=== PATIENT | male | born 1975 | race African-American/Black ===

== ENCOUNTER 2017-10-15 09:20 | Emergency (ER) | payer OTHER ==
[2017-10-15 10:12] VITALS: BP 111/69
--- NOTE | 2017-10-15 10:16 | UC ---
Laceration HPI - HPI Summary HPI Summary: 42 yo male presents with laceration to RIGHT palm sustained last night. He tells me that he was playing with his son and slid his right hand on a metal chain link fence when his skin got caught and tore. He cleansed the area and bandaged it. This morning took the bandage off and noticed some exposed fat so he wanted to get it checked out. Unsure date of last tetanus. - History Of Current Complaint Chief Complaint: UCLaceration Stated Complaint: RT HAND LAC Time Seen by Provider: 10/15/17 10:15 Hx Obtained From: Patient Laceration Location: Hand Mechanism Of Injury: Sharp Trauma Onset/Duration: Sudden Onset Severity: Mild Pain Intensity: 2 Pain Scale Used: 0-10 Numeric - Allergies/Home Medications Allergies/Adverse Reactions: Allergies Allergy/AdvReac Type Severity Reaction Status Date / Time No Known Allergies Allergy Verified 10/15/17 10:06 Home Medications: Home Medications Lansoprazole SOLUTAB* [Prevacid SOLUTAB*] 1 tab PO DAILY 10/15/17 [History Confirmed 10/15/17] Mycophenolate Mofetil TAB(*) [Cellcept TAB(*)] 4 tab PO BID 10/15/17 [History Confirmed 10/15/17] Sulfamethox/Trimethoprim DS* [Bactrim DS 800/160 TAB*] 1 tab PO DAILY 10/15/17 [ History Confirmed 10/15/17] Tacrolimus CAP(*) [Prograf CAP(*)] 2 tab PO DAILY 10/15/17 [History Confirmed ] PMH/Surg Hx/FS Hx/Imm Hx Endocrine History: Diabetes GI/ History: Gastroesophageal Reflux - Surgical History Surgical History: None Surgery Procedure, Year, and Place: kidney transplant. pancreas transplant - Family History Known Family History: Positive: None - Social History Lives: With Family Alcohol Use: Occasionally Substance Use Type: Marijuana Substance Use Comment - Amount & Last Used: occasional Smoking Status (MU): Never Smoked Tobacco - Immunization History Most Recent Influenza Vaccination: [id number] Most Recent Tetanus Shot: unknown Review of Systems Constitutional: Negative Skin: Other - Right hand laceration Respiratory: Negative Cardiovascular: Negative Neurovascular: Negative Musculoskeletal: Negative Neurological: Negative Psychological: Negative All Other Systems Reviewed And Are Negative: Yes Physical Exam - Summary Physical Exam Summary: GENERAL: NAD. WDWN. No pain distress. SKIN: RIGHT HAND: at the thenar eminence there is a 1.0cm flap-like laceration with exposed subcutaneous fat. Good approximation at rest. No FB or active bleeding. NECK: Supple. Nontender. No lymphadenopathy. CHEST: No accessory muscle use. Breathing comfortably and in no distress. CV: Pulses intact MSK: Right hand and all fingers FROM NEURO: Alert. CN II-XII grossly intact. PSYCH: Age appropriate behavior. Triage Information Reviewed: Yes Vital Signs: Initial Vital Signs Temp 97.7 F 10/15/17 10:02 Pulse 90 10/15/17 10:02 Resp 13 10/15/17 10:02 BP 111/69 10/15/17 10:02 Pulse Ox 100 10/15/17 10:02 Vital Signs Reviewed: Yes Laceration Repair - Laceration Repair 1 Description: Stellate Laceration Size After Repair: Length (cm) - 1.0 Modified For Repair: No Irrigation With Pressure Irrigation Device: Yes Closure Material: Skin Adhesive Laceration Course/Dx - Course/Dx Course Of Treatment: The area was irrigated with 500cc of NS. Dermabond was applied to the wound and then dressed with telfa. Advised to change dressing daily until well healed. tdap updated today - Differential Dx - Laceration/Wound Provider Diagnoses: Laceration right hand Discharge - Sign-Out/Discharge Documenting (check all that apply): Patient Departure - Discharge Plan Condition: Stable Disposition: HOME Patient Education Materials: Laceration (DC), Skin Adhesive Care (ED) Referrals: Alban Maldonado MD [Primary Care Provider] - Additional Instructions: If you develop a fever, shortness of breath, chest pain, new or worsening symptoms - please call your PCP or go to the ED. 1) Keep the area covered until well healed - Billing Disposition and Condition Condition: STABLE Disposition: Home
[2017-10-15] MEDS ORDERED: Tetan/Diph/Pertus SYR(Tdap)* 0.5 ML SYR(BOOSTRIX) use SYR IM ONE (10:27)
== END 2017-10-15 10:45 | disposition home or self-care (01) ==
LOC: UCCORT 09:20
DX: S61.411A Laceration without foreign body of right hand, initial encounter (principal); W26.8XXA Contact with other sharp object(s), not elsewhere classified, initial encounter; Y93.89 Activity, other specified; Y92.9 Unspecified place or not applicable; Z23 Encounter for immunization; K21.9 Gastro-esophageal reflux disease without esophagitis; Z94.0 Kidney transplant status; Z94.83 Pancreas transplant status
CPT/HCPCS: 12001; 90715; 96372; 99211; 99212; G0463

== ENCOUNTER 2019-03-03 11:21 | Emergency (ER) | payer OTHER ==
[2019-03-03 11:43] VITALS: BP 134/80
--- NOTE | 2019-03-03 11:49 | UC ---
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 Patient states he thought symptoms would improve but they have worsened. Notes nausea and chills this morning that prompted him to leave work. Denies vomiting and abdominal pain. Denies cough, SOB, wheezing, and chest pain. Denies fevers. Patient denies any illnesses or complications since transplant. - History of Current Complaint Chief Complaint: UCRespiratory Stated Complaint: ST/FATIGUE/HOT/COLD CHILLS Hx Obtained From: Patient Onset/Duration: Gradual Onset, Lasting Days Severity: Mild Pain Intensity: 4 Pain Scale Used: 0-10 Numeric - Allergies/Home Medications Allergies/Adverse Reactions: Allergies Allergy/AdvReac Type Severity Reaction Status Date / Time No Known Allergies Allergy Verified 03/03/19 11:35 Home Medications: Home Medications Another Bp Med 1 tab PO DAILY 03/03/19 [History] predniSONE TAB* [Deltasone TAB*] 5 mg PO DAILY 03/03/19 [History Confirmed 03/03] PMH/Surg Hx/FS Hx/Imm Hx Endocrine History: Diabetes - type 1 - Surgical History Surgical History: Yes Surgery Procedure, Year, and Place: kidney transplant. pancreas transplant - Family History Known Family History: Positive: None - Social History Occupation: Employed Full-time Alcohol Use: Occasionally Substance Use Type: Marijuana Substance Use Comment - Amount & Last Used: daily Smoking Status (MU): Never Smoked Tobacco - Immunization History Most Recent Influenza Vaccination: [id number] Most Recent Tetanus Shot: unknown Review of Systems All Other Systems Reviewed And Are Negative: Yes Constitutional: Positive: Chills, Fatigue. Negative: Fever ENT: Positive: Sore Throat, Sinus Congestion Respiratory: Positive: Negative Cardiovascular: Positive: Negative Gastrointestinal: Positive: Negative Musculoskeletal: Positive: Negative Neurological: Positive: Negative Physical Exam Triage Information Reviewed: Yes Appearance: No Pain Distress, Well-Nourished, Other: - covered up lying on table , appears fatigued Vital Signs: Initial Vital Signs Temp 99.2 F 03/03/19 11:38 Pulse 101 03/03/19 11:38 Resp 15 03/03/19 11:38 BP 134/80 03/03/19 11:38 Pulse Ox 100 03/03/19 11:38 Lab Results 03/03/19 03/03/19 Range/Units 12:01 12:26 Influenza A (Rapid) Negative (Negative) Influenza B (Rapid) Negative (Negative) Group A Strep Rapid Negative (Negative) Vital Signs Reviewed: Yes Eyes: Positive: Conjunctiva Clear ENT: Positive: Hearing grossly normal, Pharyngeal erythema, TMs normal, Uvula midline. Negative: Nasal congestion, Nasal drainage, Tonsillar swelling, Tonsillar exudate Neck exam: Normal Neck: Positive: Supple, Nontender, No Lymphadenopathy Respiratory Exam: Normal Respiratory: Positive: Lungs clear, Normal breath sounds, No respiratory distress. Negative: Crackles, Rhonchi, Stridor, Wheezing Cardiovascular Exam: Other - regular rhythm Cardiovascular: Positive: Tachycardia - mild tachycardia Abdominal Exam: Normal Abdomen Description: Positive: Nontender, Soft Neurological: Positive: Alert, Fatigued Psychological: Positive: Age Appropriate Behavior Skin Exam: Normal Throat Pain/Nasal Course/Dx - Course Course Of Treatment: Negative rapid strep and flu. PE findings normal. Patient alert and oriented but appears fatigued. Patient noted nights sweats and extreme fatigue. Based on history and daily immunosuppressive medications, further lab work is warranted. I recommended patient go to ED for further evaluation. Patient voiced understanding and agreed to have a friend pick him up and take him to ED upon leaving urgent care. Patient declined transfer via ambulance. - Differential Dx/Diagnosis Provider Diagnosis: Fatigue, Sore throat, Night sweats, Decrease in appetite Discharge ED - Sign-Out/Discharge Documenting (check all that apply): Patient Departure All imaging exams completed and their final reports reviewed: No Studies - Discharge Plan Condition: Stable Disposition: HOME-RECOMMEND TO ED Referrals: No Primary Care Phys,NOPCP [Primary Care Provider] - Additional Instructions: The provider that evaluated you today thinks that you need additional testing that can be completed the emergency department. It is recommended that you go directly to emergency department for further evaluation. This evaluation included blood work or imaging. This testing will be directed and decided by the provider that evaluates you at the emergency department. If pain becomes worse, you feel lightheaded, you have uncontrolled vomiting, or you have any other concerns while you are being driven to emergency department as recommended to pullover and contact 911. - Billing Disposition and Condition Condition: STABLE Disposition: Home-Recommend to ED
[2019-03-03 12:38] LABS: Influenza A Molecular NEGATIVE (Negative); Influenza B Molecular NEGATIVE (Negative)
== END 2019-03-03 13:29 | disposition home health service (06) ==
LOC: UCCORT 11:21
DX: J02.9 Acute pharyngitis, unspecified (principal); R53.83 Other fatigue; R61 Generalized hyperhidrosis; R63.8 Other symptoms and signs concerning food and fluid intake; R09.81 Nasal congestion; E10.9 Type 1 diabetes mellitus without complications; Z94.0 Kidney transplant status; Z94.83 Pancreas transplant status
CPT/HCPCS: 87651; 99212; G0463

== ENCOUNTER 2019-06-05 08:41 | Emergency (ER) | payer SELFPAY ==
--- NOTE | 2019-06-05 08:59 | UC ---
Laceration HPI - HPI Summary HPI Summary: 44-year-old male who sustained a laceration between his fourth and fifth finger of his right hand last evening when he was washing a Igor jar which had a sharp edge. Last tetanus was 2018. - History Of Current Complaint Stated Complaint: LEFT HAND LACERATION Time Seen by Provider: 06/05/19 08:49 Hx Obtained From: Patient Laceration Location: Hand Mechanism Of Injury: Sharp Trauma Onset/Duration: Sudden Onset Severity: Mild Aggravating Factors: Movement Related History: Dominant Hand Right - Allergies/Home Medications Allergies/Adverse Reactions: Allergies Allergy/AdvReac Type Severity Reaction Status Date / Time No Known Allergies Allergy Verified 06/05/19 08:50 Home Medications: Home Medications Amlodipine Besylate 5 mg PO BID 03/04/12 [History Confirmed 06/05/19] Mycophenolate Mofetil TAB(*) [Cellcept TAB(*)] 4 tab PO BID 10/15/17 [History Confirmed 06/05/19] Tacrolimus CAP(*) [Prograf CAP(*)] 2 tab PO DAILY 10/15/17 [History Confirmed ] predniSONE 5 mg TAB [Deltasone TAB*] 5 mg PO DAILY 03/03/19 [History Confirmed 06/05/19] Nebivolol HCl [Bystolic] 10 mg PO DAILY 06/05/19 [History Confirmed 06/05/19] PMH/Surg Hx/FS Hx/Imm Hx Previously Healthy: Yes Endocrine History: Diabetes Cardiovascular History: Hypertension - Surgical History Surgical History: Yes Surgery Procedure, Year, and Place: kidney transplant. pancreas transplant - Family History Known Family History: Positive: None - Social History Occupation: Employed Full-time Lives: With Family Alcohol Use: Occasionally Substance Use Type: Marijuana Substance Use Comment - Amount & Last Used: daily Smoking Status (MU): Never Smoked Tobacco - Immunization History Most Recent Influenza Vaccination: [id number] Most Recent Tetanus Shot: unknown Review of Systems All Other Systems Reviewed And Are Negative: Yes Skin: Positive: Other - Approximately 1.0 cm laceration between the fourth and fifth fingers web space. Is Patient Immunocompromised?: No Physical Exam Triage Information Reviewed: Yes Appearance: Well-Appearing, No Pain Distress, Well-Nourished Vital Signs Reviewed: Yes Musculoskeletal: Positive: Strength Intact, ROM Intact, Other: - Good peripheral pulses, neuro sensation and capillary refill. Good finger strength with flexion extension against resistance. Patient has an approximate 1.0 cm laceration of the webspace in between the fourth and fifth fingers, bleeding is controlled. Neurological Exam: Normal Psychological Exam: Normal Skin: Positive: Other - See above notes. Laceration Repair - Laceration Repair 1 Description: Linear Laceration Size After Repair: Length (cm) - 1.0 cm Modified For Repair: No Type Injection: Local Anesthesia Used: 1.0% Lido Cleansing Completed Via Routine Prep: Yes Irrigation With Pressure Irrigation Device: Yes Closure Material: Sutures - Sutures placed numbered 3 using 40 prolene Closure Method: Single Layer Suture Of: Skin Suture Type: Prolene Laceration Course/Dx - Course/Dx Course Of Treatment: Patient tolerated the laceration repair well. A dry sterile bulky dressing was applied and he is to change it daily. - Diagnosis Provider Diagnosis: Laceration of hand Discharge ED - Sign-Out/Discharge Documenting (check all that apply): Patient Departure All imaging exams completed and their final reports reviewed: No Studies - Discharge Plan Condition: Good Disposition: HOME Patient Education Materials: Care For Your Stitches (ED) [facility]] No Primary Care Phys,NOPCP [Primary Care Provider] - Additional Instructions: Keep the dressing on for 24 hours and then change it daily. Watch for signs of infection such as hot, red, tender, pus drainage or red streaks up your hand and follow-up with [facility] if you develop any signs of infection. - Billing Disposition and Condition Condition: GOOD Disposition: Home
[2019-06-05 09:04] VITALS: BP 142/83
[2019-06-05] MEDS ORDERED: Lidocaine 1% MPF ** 5 ML VIAL INJ ONE (09:22)
== END 2019-06-05 10:12 | disposition home or self-care (01) ==
LOC: UCCORT 08:41
DX: S61.411A Laceration without foreign body of right hand, initial encounter (principal); E11.9 Type 2 diabetes mellitus without complications; I10 Essential (primary) hypertension; Z79.899 Other long term (current) drug therapy; W25.XXXA Contact with sharp glass, initial encounter; Y93.G1 Activity, food preparation and clean up; Y92.9 Unspecified place or not applicable
CPT/HCPCS: 12001; 99211; G0463